=== PATIENT | female | born 1955 | race Caucasian/White ===

== ENCOUNTER 2018-01-03 20:55 | Emergency (ER) | payer BC ==
[~2018-01-03] VITALS: Ht 157.5 cm; Wt 65.8 kg
[2018-01-03 21:05] VITALS: BP 155/84
[2018-01-03] MEDS ORDERED: Bacitracin Oint UD TOPIC ONE (21:30)
[2018-01-03] MEDS ORDERED: Tetanus/Diptheria/Pertussis Vaccine 0.5ml Syr IM ONE (21:30)
[2018-01-03 22:17] LABS: BILIRUBIN, URINE NEGATIVE (NEGATIVE); COLOR,URINE YELLOW; GLUCOSE, URINE (UA) NEGATIVE (NEGATIVE); KETONES,URINE NEGATIVE (NEGATIVE); LEUKOCYTE ESTERASE ,URINE 3+ (NEGATIVE); NITRITE,URINE NEGATIVE (NEGATIVE); PH,URINE 6.5 (4.5-8.0); PROTEIN,URINE NEGATIVE (NEGATIVE); UROBILINOGEN,URINE NORMAL MG/DL (0.0-1.0)
[2018-01-03 22:20] LABS: APPEARANCE,URINE SLIGHTLY CLOUDY
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
[2018-01-03] MEDS ORDERED: TYLENOL325 MG ORAL (22:55)
[2018-01-03] MEDS ORDERED: ROBAXIN500 MG PO (22:55)
[2018-01-03] MEDS ORDERED: IBUPROFEN600 MG ORAL (22:55)
[2018-01-03] MEDS ORDERED: NITROFURANTOIN100 M2 ORAL (22:55)
[2018-01-03 23:04] VITALS: BP_SYST 132; BP_SYST 140; BP_DIAS 72; BP_DIAS 85
== END 2018-01-03 23:04 | disposition home or self-care (01) ==
LOC: EMR 22:55
DX: S40.021A Contusion of right upper arm, initial encounter (principal); S70.312A Abrasion, left thigh, initial encounter; V09.9XXA Pedestrian injured in unspecified transport accident, initial encounter; Y93.01 Activity, walking, marching and hiking; Y92.414 Local residential or business street as the place of occurrence of the external cause; N39.0 Urinary tract infection, site not specified; Z23 Encounter for immunization
CPT/HCPCS: 72020; 81003; 87086; 90471; 90715; 99283